=== PATIENT | female | born 1960 | race Caucasian/White ===

== ENCOUNTER 2022-06-05 07:45 | Outpatient (CLI) | payer OTHER, SELFPAY ==
--- NOTE | ~2022-06-05 | MM_ITS ---
EXAMINATION: MM screening [facility] BI w eladio HISTORY: Screening TECHNIQUE: Craniocaudal and mediolateral oblique 3-D tomosynthesis images were obtained and synthetic 2-D images were generated. CAD analysis was submitted and interpreted. COMPARISON: Comparison to multiple prior studies sequentially, with oldest reviewed study dated 03/29. BREAST PARENCHYMAL COMPOSITION: There are scattered areas of fibroglandular density. FINDINGS: There is no evidence of suspicious mass, calcification, or architectural distortion to sugg est malignancy in either breast. There has been no suspicious interval change. IMPRESSION: 1. No mammographic evidence of malignancy. 2. Recommend routine screening mammography in one year. BI-RADS Category 1: Negative Reviewed, dictated and finalized at location A.
== END 2022-06-05 07:46 | disposition home or self-care (01) ==
PROVIDERS: PCP Nurse Practitioner Family; Visit Provider Nurse Practitioner Family
DX: Z12.31 Encounter for screening mammogram for malignant neoplasm of breast (principal)
CPT/HCPCS: 77063; 77067

== ENCOUNTER 2022-07-13 08:36 | Emergency (ER) | payer OTHER, SELFPAY ==
[2022-07-13 08:59] VITALS: BP 186/94; PULSE 75; RESP 16; TEMP 37.1; O2SAT 99
--- NOTE | 2022-07-13 09:25 | ED.FEMALEGU ---
HPI - Female Genitourinary General Chief complaint: Urogenital-Female Stated complaint: UTI Time Seen by Provider: 07/13/22 09:25 Source: patient and RN notes reviewed Mode of arrival: ambulatory Limitations: no limitations History of Present Illness HPI Narrative: 62-year-old female presented for complaint of urinary frequency for about 3 days. She denies any associated nausea, vomiting, flank pain, hematuria, fevers or chills. States her last UTI was 1 year ago. She has not taken anything [id number] for symptoms. Related Data Allergies Allergy/AdvReac Type Severity Reaction Status Date / Time No Known Allergies Allergy Verified 07/13/22 09:06 Review of Systems Review of Systems: CONSTITUTIONAL: Denies body aches, fever, chills, or sweats. CARDIOVASCULAR: Denies chest pain, palpitations, or edema. RESPIRATORY: Denies cough or dyspnea. GASTROINTESTINAL: Denies abdominal pain, nausea, vomiting, or diarrhea. GENITOURINARY: Reports frequency, denies dysuria, urgency, hematuria, flank pain SKIN: Denies rash, itching, or wounds. MUSCULOSKELETAL: Denies back pain or myalgia. [facility] Past Medical History Medical History (Updated 07/13/22 @ 09:38 by Adelina Grande APRN) No pertinent past medical history Family History Family History Mother Family history of diabetes mellitus in first degree relative Family history of malignant neoplasm of breast in first degree relative Father Family history of heart disease in male family member before age 55 Other Diabetes mellitus Family history of cardiovascular disease Hypertension Social History Social History Alcohol intake: never Comments At time of signature, I have reviewed and agree with nursing past medical, surgical, social and family history unless otherwise noted. Please see nursing chart for further information. There is no relevant family history pertinent to the presenting complaint Exam Narrative: GENERAL: Well-appearing and in no acute distress. HEAD: Normocephalic EYES: EOMI. . ENT: Mucous membranes pink and moist. NECK: Normal AROM. Supple. CHEST: No respiratory distress. Clear to auscultation. HEART: Regular rate and rhythm. ABDOMEN: Soft, nontender, nondistended, normal active bowel sounds. No CVA tenderness SKIN: Warm, dry, no rash. NEURO: No focal deficits. Alert and oriented x3. Gait steady. PSYCH: Normal affect. Course Course Emergency Course: Patient is aware of diagnosis, understands and agrees to treatment plan. Anticipatory guidance given. Patient agrees to follow-up as directed and is aware of reasons to seek care at the emergency department. Portions of this record may have been created with voice recognition software Level of Care: Express Care Visit Vital Signs Vital signs: Vital Signs Temperature 98.7 F 07/13/22 08:59 Pulse Rate 75 07/13/22 08:59 Respiratory Rate 16 07/13/22 08:59 Blood Pressure 186/94 H 07/13/22 08:59 Pulse Oximetry 99 07/13/22 08:59 Oxygen Delivery Room Air 07/13/22 08:59 Temperature 98.7 F 07/13/22 08:59 Pulse Rate 75 07/13/22 08:59 Respiratory Rate 16 07/13/22 08:59 Blood Pressure 186/94 H 07/13/22 08:59 Pulse Oximetry 99 07/13/22 08:59 Oxygen Delivery Room Air 07/13/22 08:59 Reviewed MDM - Female Genitourinary MDM Narrative Medical decision making narrative: Pt's bp elevated today, not on medication. She will take bp at home and document, and will contact pcp today. She also is scheduled with obgyn next week. Aware of s/s to go to the ER. Discussed physical exam findings and urine result. Advised supportive measures and signs/symptoms to go to the ER. Pt is appropriate for outpt treatment and f/u. Differential Diagnosis Differential diagnosis: Likely urinary tract infection and cystitis Lab Data Labs:
[2022-07-13 09:41] VITALS: BP 188/82
== END 2022-07-13 09:41 | disposition home or self-care (01) ==
PROVIDERS: Emergency Provider Nurse Practitioner Family; PCP Nurse Practitioner Family
DX: N39.0 Urinary tract infection, site not specified (principal)
CPT/HCPCS: 81003; 87086; 87088; 99213; G0463

== ENCOUNTER 2022-09-06 08:30 | Outpatient (CLI) | payer OTHER, SELFPAY ==
--- NOTE | 2022-09-09 18:48 | WPDHOMESLEEP ---
Sleep Study - Home Unattended Date of Study: 09/06/22 Ordering Provider: Gi Lance, ELECTRON MICROSCOPIST Interpreting Provider: Gracy Godinez MD Home Sleep Study Type: Watch PAT Height: 1.7 m Weight: 81.647 kg Body Mass Index: 28.1 Neck Circumference (inches): 14 [place]: 4 Reason for Sleep Study Snoring Sleep History Viky Healy is a 62-year-old female with history of loud snoring who is having a home sleep test for possible sleep disordered breathing. She rarely awakens from sleep short of breath. She occasionally awakens at night with heartburn, belching or cough.??She constantly snores, always snores loudly enough that others complain. She occasionally has trouble sleeping when she has a cold. She never suddenly wakes up gasping for breath during the night. She rarely has breathing problems at night observed by others. She occasionally sweats excessively at night. She rarely notices her heart pounding or beating irregularly during the night. She occasionally falls asleep during the day, rarely falls asleep involuntarily, never falls asleep while driving. She never experiences loss of muscle tone with strong emotion. She never never feels paralyzed on waking or falling asleep. She never experiences vivid dreams upon waking or falling asleep. She never feels afraid of going to sleep. She never has nightmares. She never recalls her dreams. She rarely has thoughts racing through her mind. She never feels sad or depressed. She never feels anxiety or worry about things. She rarely notices parts of her body jerk. She rarely kicks during the night. She rarely feels crawling or aching feelings in her legs. She rarely feels leg pain at night. She rarely grinds her teeth at night, never has morning jaw pain. She rarely feels bothered by pain during the day and awakened by pain during the night. She rarelywakes up feeling stiff, sore, and achy in the morning with pain in her neck, spine, or joints. ? ? Normal bedtime is around 9:00 p.m., taking about an hour or less to fall asleep. She typically gets about 7-8 hours of sleep per night. Her wake up time is 6:00 a.m.. she wakes 1 or 2 times at night to use the bathroom and is able to return to sleep quickly. On weekends, bedtime is 10:00 p.m., wake-up is 7:00 a.m.. She takes naps in the afternoon or evening. A short nap lasting 10 or 15 minutes may be refreshing. She feels better in the morning compared to other times of day. Habits:??Tobacco: Never Caffeine: 2 cups/day. Alcohol: none. Recreational substances: none [facility] Past Medical History Medical History (Updated 09/09/22 @ 19:07 by Gracy Godinez MD) Hyperlipidemia Hypothyroidism Family History Family History Mother Family history of diabetes mellitus in first degree relative Family history of malignant neoplasm of breast in first degree relative Father Family history of heart disease in male family member before age 55 Other Diabetes mellitus Family history of cardiovascular disease Hypertension Social History Social History Alcohol intake: never Medications Home Medications Medication Instructions Recorded Confirmed Type nitrofurantoin 100 mg PO Q12H 5 days #10 caps 07/13/22 Rx monohydrate/macrocrystals 100 mg capsule (Macrobid) Medications: hand written list provided by patient in sleep questionnaire L-thyroxine 100 mcg daily vitamin D 50 mcg daily rosuvastatin calcium 5 mg daily Sleep Procedure The sleep study was completed using WatchPAT a technically adequate device with seven channels: peripheral arterial tone, actigraphy, body position, snore, respiratory movement, pulse oximetry, sleep staging, and heart rate. Prior to using the device, the patient received verbal and written instructions for its application and was provided with
[2022-09-09 19:13] VITALS: BMI 28.1
== END 2022-09-07 11:59 | disposition home or self-care (01) ==
LOC: ANHCSM 08:30
PROVIDERS: PCP Nurse Practitioner Family; Visit Provider Nurse Practitioner Family
DX: G47.30 Sleep apnea, unspecified (principal); G47.33 Obstructive sleep apnea (adult) (pediatric)
CPT/HCPCS: 95800

== ENCOUNTER 2023-06-21 14:55 | Outpatient (CLI) | payer BC, SELFPAY ==
--- NOTE | ~2023-06-21 | MM_ITS ---
CORRECTED REPORT Corrected examination description [facility] [place] 06/24/2023 This report was recreated on 06/24/2023. Original report was EXAMINATION: MM screening mammo BI w eladio HISTORY: Screening TECHNIQUE: Craniocaudal and mediolateral oblique 3-D tomosynthesis images were obtained and synthetic 2-D images were generated. CAD analysis was submitted and interpreted. COMPARISON: Comparison to multiple prior studies sequentially, with oldest reviewed study dated 03/29/2020. BREAST PARENCHYMAL COMPOSITION: Not dense: There are scattered areas of fibroglandular density. FINDINGS: There is no evidence of suspicious mass, calcification, or architectural distortion to suggest malignancy in either breast. There has been no suspicious interval change. IMPRESSION: 1. No mammographic evidence of malignancy. 2. Recommend routine screening mammography in one year. BI-RADS Category 1: Negative Reviewed, dictated and finalized at location A. MTDD
== END 2023-06-21 14:56 | disposition home or self-care (01) ==
LOC: ANHIMG 14:57
PROVIDERS: PCP Nurse Practitioner Adult Health; Visit Provider Nurse Practitioner Adult Health
DX: Z12.31 Encounter for screening mammogram for malignant neoplasm of breast (principal)
CPT/HCPCS: 77063; 77067